=== PATIENT | male | born 1960 | race Caucasian/White ===

== ENCOUNTER → 2019-06-19 | Outpatient (CLI) | payer OTHER ==
[~2019-06-19] MED LIST: CONTRAST GIVEN MC PRN; IOHEXOL 300 MG/ML 75 ML VIAL. IV ONE
--- NOTE | 2019-06-19 14:59 | RAD ---
EXAM: Head CT with and without contrast. HISTORY: Headache. TECHNIQUE: Computed tomographic images of the head were obtained prior to and following the administration of intravenous contrast. *One or more of the following individualized dose reduction techniques were utilized for this examination: 1. Automated exposure control. 2. Adjustment of the mA and/or kV according to patient size. 3. Use of iterative reconstruction technique. COMPARISON: None. FINDINGS: There is no acute or subacute extra-axial or intraparenchymal hemorrhage. There is no mass effect or midline shift. There is no hydrocephalus. No abnormal enhancing lesion is seen. There is asymmetry in the size of the right greater than left lateral ventricles, likely developmental in etiology. There is mild cerebral volume loss with slight compensatory enlargement of the ventricles. The dominguez-white matter differentiation pattern is intact. There is paranasal sinus mucosal thickening. There is fluid within the right greater than left mastoid air cells. There is no suspicious calvarial lesion. IMPRESSION: No acute intracranial finding. Note is made that MRI is more sensitive for acute infarction. Electronically signed by: Mariangel Carlos MD (06/19/2019 2:56 PM) [id number]
== END ==
LOC: CT 13:58
PROVIDERS: ATTEND Family Medicine
DX: R51 Headache (principal)
CPT/HCPCS: 70470; Q9967